=== PATIENT | male | born 1970 | race Hispanic/Latino ===

== ENCOUNTER 2018-01-30 09:20 | Emergency (ER) | payer OTHER ==
[2018-01-30] MEDS ORDERED: Acetaminophen 500 MG TAB ONE (10:28)
--- NOTE | 2018-01-30 11:02 | CT ---
NONCONTRAST CT HEAD: Date: 01/30/18 HISTORY: Fall with loss of consciousness. COMPARISON: None available. FINDINGS: There is no evidence of a hemorrhage, acute infarction, mass effect, or midline shift. The ventricula r system is normal in size, shape, and position. There is a punctate calcification seen within the ri ght frontal lobe medial aspect of woodard-white junction in a supraventricular location, which is nonspe cific. This could be related to calcification in the sulcus or possibly secondary to healed cysticerc osis. There is mild scalp soft tissue swelling seen in the right parietal region. Underlying calvarial stru ctures are intact, and no calvarial fracture is seen. Visualized paranasal sinuses and mastoid air ce lls are clear. IMPRESSION: 1. No acute intracranial abnormalities. 2. Right parietal scalp hematoma. POS: [facility]
== END 2018-01-30 11:07 | disposition home or self-care (01) ==
LOC: ERS 09:20
DX: S06.0X1A Concussion with loss of consciousness of 30 minutes or less, initial encounter (principal); S00.03XA Contusion of scalp, initial encounter; W01.10XA Fall on same level from slipping, tripping and stumbling with subsequent striking against unspecified object, initial encounter
CPT/HCPCS: 70450